=== PATIENT | female | born 1965 | race Caucasian/White ===

== ENCOUNTER → 2021-08-11 08:27 | Outpatient (CLI) | payer OTHER, MEDICAID, SELFPAY ==
[2021-08-12 20:09] LABS: Urine N gonorrhoeae NOT DETECTED
[2021-08-12 20:10] LABS: Urine Chlamydia DETECTED
== END ==
PROVIDERS: PCP Physician Assistant; Visit Provider Physician Assistant
DX: Z11.3 Encounter for screening for infections with a predominantly sexual mode of transmission (principal)
CPT/HCPCS: 87480; 87491; 87510; 87591; 87660; 87661; 87798; 87801

== ENCOUNTER → 2021-09-08 09:58 | Outpatient (CLI) | payer OTHER, MEDICAID, SELFPAY ==
[2021-09-09 07:09] LABS: RPR Screen Non Reactive (Non Reactive)
[2021-09-09 16:03] LABS: HIV 1 & 2 Ab/Ag 4th Gen Combo NEGATIVE (NEGATIVE); Hep C Virus Ab w/Reflex Quant NEGATIVE s/c (NEGATIVE)
== END ==
PROVIDERS: PCP Physician Assistant; Visit Provider Physician Assistant
DX: A74.9 Chlamydial infection, unspecified (principal)
CPT/HCPCS: 86592; 86803; 87389

== ENCOUNTER → 2021-12-10 10:46 | Outpatient (CLI) | payer OTHER, MEDICAID, SELFPAY | PROVIDERS: PCP Physician Assistant Medical; Visit Provider Physician Assistant Medical | DX: L02.92 Furuncle, unspecified (principal) | CPT/HCPCS: 87070; 87075; 87186; 87205 ==

== ENCOUNTER → 2023-01-09 18:13 | Outpatient (CLI) | payer OTHER, MEDICAID, SELFPAY ==
[2023-01-09 20:23] LABS: Urine N gonorrhoeae NOT DETECTED
[2023-01-09 20:31] LABS: Urine Chlamydia NOT DETECTED
== END ==
PROVIDERS: PCP Physician Assistant Medical; Visit Provider Physician Assistant
DX: N89.8 Other specified noninflammatory disorders of vagina (principal); Z11.3 Encounter for screening for infections with a predominantly sexual mode of transmission
CPT/HCPCS: 87210; 87491; 87591

== ENCOUNTER → 2023-02-08 14:02 | Outpatient (CLI) | payer OTHER, MEDICAID, SELFPAY ==
[2023-02-08 15:40] LABS: Urine N gonorrhoeae NOT DETECTED
[2023-02-08 15:42] LABS: Urine Chlamydia NOT DETECTED
== END ==
PROVIDERS: PCP Physician Assistant Medical; Visit Provider Nurse Practitioner Family
DX: N89.8 Other specified noninflammatory disorders of vagina (principal); Z11.3 Encounter for screening for infections with a predominantly sexual mode of transmission
CPT/HCPCS: 87210; 87491; 87591